=== PATIENT | male | born 1945 | race Caucasian/White ===

== ENCOUNTER 2022-06-03 06:36 | Day surgery (SDC) | payer MEDICARE ==
[~2022-06-03] VITALS: Ht 182.9 cm; Wt 64.4 kg
[~2022-06-03 06:36] MED LIST: BACTRIM DS1 TAB PO; CARVEDILOL; CENTRUM SILVER1 TAB PO; DILAUDID 2MG2 MG/TA1 PO; DOXYCYCL HYC100 MG PO; FLOMAX0.4 M1 PO; GARLIC200 MG PO; KRILL OIL1000 MG PO; LOSARTAN; NO MED; PYRIDIUM200 MG PO; [UNRECOGNIZED DRUG - OTHER]; [UNRECOGNIZED DRUG - REMARK]
[2022-06-03] MEDS ORDERED: LORTAB 5/3255 MG PO (08:47)
[2022-06-03 11:47] VITALS: BP 167/80
== END 2022-06-03 12:10 | disposition home or self-care (01) ==
LOC: ORM 06:36
PROVIDERS: ATTEND Surgery
PROC: 0YU50JZ Supplement Right Inguinal Region with Synthetic Substitute, Open Approach (ICD-10-PCS; principal; 2022-06-03)
DX: K40.90 Unilateral inguinal hernia, without obstruction or gangrene, not specified as recurrent (principal); I10 Essential (primary) hypertension
CPT/HCPCS: C9290; J0131; J0690